=== PATIENT | male | born 1940 | race Caucasian/White ===

== ENCOUNTER 2020-01-15 15:05 | Outpatient (RCR) | payer MEDICARE, SELFPAY ==
--- NOTE | 2020-01-15 16:14 | HMH.SLDYSPHA ---
Speech & Language Evaluation Speech/Language Dysphagia Evaluation Start: 01/15/20 16:02 Freq: ONCE Status: Active Protocol: Document 01/15/20 16:02 LILIAN (Rec: 01/15/20 16:14 LILIAN [id number]) Dysphagia Assess/Goals/Plan Assessment Date of Evaluation: 01/15/20 Evaluation Type Initial Certification Assessment/Problems Dysphagia Does Patient Qualify for Service No Qualify/Failure Comment At this time, no clinical s/s of dysphagia are noted. If symptoms continue at home, a MBS is recommended. Plan Pt/Guardian verbally ack understanding Yes of dx/prognosis/goals G -code Required No Education Instructions provided HEP provided: Laryngeal elevation exercises, vocal fold adduction exercises, tongue based retraction exercises Compensatory strategies: small bites/small sips alternate between a bite and a sip chin tuck and hard swallow if he feels something is stuck General Information General Current Food Consistancy Regular,Thin Liquids Dentition Upper & Lower Dentures Oxygen Status Room Air Facial Symmetry Symmetrical Patient Orientation Person,Place Ability to Follow Directions Excellent Communication Ability No Impairment Dysphagia:Food Presentation Evaluation Food Type Mechanical Soft,Regular,Liquid ,Pudding Dysphagia Evaluation Summary Mr. Corona was given the following consistencies: thins via straw and open cup, pudding, mechanical soft, and regular. No clinical s/s of dysphagia were noted during the evaluation. He will be going to ENT on 01/22/2020. He was given HEP to target laryngeal elevation, vocal fold adduction, and tongue base retraction. He was also given compensatory strategies. At this time, speech therapy is not warranted. Should problems continue, it is recommended that Mr. Corona
== END 2020-01-15 15:10 | disposition home or self-care (01) ==
LOC: ST 15:05
PROVIDERS: PCP Physician Assistant; Visit Provider Physician Assistant
DX: R13.10 Dysphagia, unspecified (principal); R49.0 Dysphonia
CPT/HCPCS: 92610

== ENCOUNTER → 2020-01-29 08:40 | Outpatient (CLI) | payer MEDICARE, SELFPAY ==
--- NOTE | 2020-01-29 08:47 | XR_ITS ---
PROCEDURE: XR CHEST 2V CLINICAL HISTORY: dysphagia COMPARISON: CXR1 CHEST-PORTABLE from 04/07/2015 CXR CHEST(2 VIEWS-NOT PORTABLE) from 05/09/[address] [facility] [address] CHEST W/O CONTRAST from 05/27/2017 CXR CHEST(2 VIEWS-NOT PORTABLE) from 05/30/2017 FINDINGS: Prior CABG. Normal heart size. There is tortuosity/ectasia of the descending thoracic aorta . Right hemidiaphragm is slightly elevated with atelectatic changes in the right lung base. No acute bony abnormalities. IMPRESSION: No acute findings. Dictated by: Nav Madden MD 01/29/2020 10:52 Electronically signed by Nav Madden MD in [facility] 01/29/2020 10:52
--- NOTE | 2020-01-29 08:47 | FL_ITS ---
PROCEDURE: FL BARIUM SWALLOW CLINICAL INDICATION: dysphagia- neg. modified COMPARISON: No exams were available for comparison TECHNIQUE: In the upright position the patient was observed to swallow barium in both the AP and lateral view. The cervical esophagus was examined under fluoroscopy with images obtained. The patient was then placed prone in the right anterior oblique position and was observed to swallow barium with Valsalva technique . FLUOROSCOPY TIME: 48 seconds. FINDINGS: There was no evidence of aspiration. No filling defects or mucosal abnormalities. No masses or strictures. There was some tertiary contractions noted of the distal esophagus with mild dysmotility. No annular constricting lesions, polypoid filling defects, hernias, or mucosal abnormalities. IMPRESSION: Mild esophageal dysmotility otherwise negative Dictated by: Nav Madden MD 01/29/2020 13:11 Electronically signed by Nav Madden MD in [facility] 01/29/2020 13:11
== END ==
PROVIDERS: PCP Physician Assistant; Visit Provider Otolaryngology
DX: R13.10 Dysphagia, unspecified (principal)
CPT/HCPCS: 71046; 74220

== ENCOUNTER 2021-04-01 17:56 | Emergency (ER) | payer MEDICARE, SELFPAY ==
[2021-04-01] VITALS (8 sets, daily range): BP systolic 142–206; BP diastolic 58–79; PULSE 60–74; RESP 22–33; TEMP 36.6; O2SAT 94–98; BMI 27.3; BMI 29.7
--- NOTE | 2021-04-01 17:57 | CT_ITS ---
PROCEDURE INFORMATION: Exam: CT Head Without Contrast Exam date and time: 04/01/2021 5:57 PM Age: 80 years old Clinical indication: Walking, difficulty and weakness, extremity and weakness, facial; Patient HX: Stroke symptoms left sided; Additional info: Stroke alert TECHNIQUE: Imaging protocol: Computed tomography of the head without contrast. Radiation optimization: All CT scans at this facility use at least one of these dose optimization techniques: automated exposure control; mA and/or kV adjustment per patient size (includes targeted exams where dose is matched to clinical indication); or iterative reconstruction. Other technique: STROKE PROTOCOL was implemented. COMPARISON: No relevant comparison FINDINGS: Brain: There is age-related volume loss. There is periventricular white matter lucency consistent with chronic microvascular disease. There are small old white matter and basal ganglia lacunar infarcts. As seen on series 2 images 59-73, there is hyperdensity in the right paramedian dorsal mio measuring 10 x 9 by 11 mm most consistent with acute hemorrhage. This is less than 1 cc volume. Cerebral ventricles: Ventricular size is proportionate to prominence of the sulci Paranasal sinuses: Visualized sinuses are unremarkable. No fluid levels. Mastoid air cells: Visualized mastoid air cells are well aerated. Bones/joints: Unremarkable. No acute fracture. Soft tissues: Unremarkable. 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 ASSESSMENT: ASPECTS ([place] Stroke Program Early CT Score) is 10.
--- NOTE | 2021-04-01 17:57 | PC.NURSE ---
fsbs 121
--- NOTE | 2021-04-01 17:58 | PC.NURSE ---
Pt to rad
--- NOTE | 2021-04-01 18:02 | XR_ITS ---
PROCEDURE INFORMATION: Exam: XR Chest Exam date and time: 04/01/2021 6:02 PM Age: 80 years old Clinical indication: Cough TECHNIQUE: Imaging protocol: XR of the chest. Views: 1 view. COMPARISON: CR XR CHEST 2V 01/29/2020 8:56 AM FINDINGS: Lungs: Poor inspiratory volume. Area of atelectasis or consolidation at the left lung base Pleural spaces: Unremarkable. No pleural effusion. No pneumothorax. Heart/Mediastinum: Unremarkable. No cardiomegaly. Bones/joints: Status post median sternotomy IMPRESSION: Poor inspiratory volume with area of atelectasis or consolidation at left lung base
--- NOTE | 2021-04-01 18:09 | PC.NURSE ---
pt return from CT
--- NOTE | 2021-04-01 18:17 | PC.NURSE ---
AGA LOPEZ spoke with [facility]
[2021-04-01 18:20] LABS: Coronavirus 19, PCR Not Detected (NotDetected); Influenza A, PCR Not Detected (NotDetected); Influenza B, PCR Not Detected (NotDetected)
[2021-04-01 18:25] LABS: Basophils # 0.1 K/mm3 (0-0.2); Basophils % 0.7 % (0.1-2.0); Eosinophils # 0.4 K/mm3 (0.0-0.4); Eosinophils % 3.8 % (0.1-12.0); Hematocrit 45.1 % (42.0-52.0); Hemoglobin 14.9 g/dL (14.1-18.0); Lymphocytes # 4.6 K/mm3 (0.7-4.5); Lymphocytes % 44.5 % (10-50); Mean Corpuscular Hemoglobin 31.7 pg (27.0-31.2); Mean Corpuscular Volume 96.1 fl (80-94); Mean Platelet Volume 9.3 fl (7.4-10.4); Monocytes # 0.8 K/mm3 (0.1-1.0); Monocytes % 7.3 % (1.7-9.3); Neutrophils # 4.5 K/mm3 (1.8-7.8); Neutrophils % 43.7 % (37.0-80.0); Platelet Count 180 K/mm3 (142-424); Red Blood Count 4.69 M/mm3 (4.60-6.20); Red Cell Distribution Width 14.2 % (11.5-17.5); White Blood Count 10.4 K/mm3 (4.8-10.8)
[2021-04-01 18:30] LABS: Alanine Aminotransferase 15 U/L (12-78); Albumin Level 4.1 g/dl (3.5-5.0); Albumin/Globulin Ratio 1.2 (1.1-1.8); Alkaline Phosphatase 74 U/L (38-126); Anion Gap 15.1 mEq/L (5-15); Aspartate Amino Transferase 29 U/L (17-59); Bilirubin,Total 0.3 mg/dl (0.2-1.3); Blood Urea Nitrogen 27 mg/dl (9-20); Calcium 9.5 mg/dl (8.4-10.2); Carbon Dioxide 25 mmol/L (22.0-30.0); Chloride 104 mmol/L (98-107); Creatinine Clearance Estimated 55 mL/min (50-200); Estimated Glomerular Filt Rate 53 ml/min (>60); GFR (African American) 64 ML/MIN (>60); Globulin 3.4 g/dL (1.3-3.2); Glucose 131 mg/dl (74-100); Lipase 170 U/L (23-300); Potassium 4.1 mmoL/L (3.5-5.1); Sodium 140 mmol/L (136-145); Total Protein,Serum 7.5 g/dl (6.3-8.2)
--- NOTE | 2021-04-01 18:30 | PC.NURSE ---
pt place on O2 at 2L per NC
[2021-04-01 18:32] LABS: Activated Partial Thrombo Time 23.7 seconds (22.8-30.6); Prothrombin Time 10.8 seconds (10.1-12.5)
--- NOTE | 2021-04-01 18:32 | PC.NURSE ---
Calling [facility] at this time.
[2021-04-01 18:37] LABS: INR 0.91 (0.9-1.1)
[2021-04-01 18:44] LABS: NT Pro Brain Natriuretic Pep. 444 pg/mL (0-450); Troponin I < 0.01 ng/ml (0.00-0.034)
--- NOTE | 2021-04-01 18:46 | HMH.EDWEAK ---
ED Disposition Clinical Impression: Pontine hemorrhage Disposition: Xfer Critical Access Hosp Condition on Discharge: Critical Referrals: Delfina Ladd PA [Primary Care Provider] - - Critical Care Critical Care Time: Yes Attestation: On 04/01/21, the high probability of a clinically significant, sudden or life threatening deterioration of the following system(s) required my full and direct attention, intervention and personal management. The time I documented below is in addition to time spent performing reported procedures but includes the following listed in this critical care notation. Total Critical Care Time: 30 Vital system(s) involved:: Central Nervous System My critical care processes included: Assessment & monitoring of V/S, Initial and Re-exams, Data Review/Interpretation, Coordinating Care, Medication Orders and management, Documentation Medical Decision Making - Medical Records Medical records reviewed: Yes: I reviewed the patient's medical records. - Jonathan Inquiry Pt receiving controlled substance: No Vital Signs: 04/01/21 17:57 04/01/21 18:12 04/01/21 18:17 Temperature 97.9 F Temperature Source Oral Pulse Rate 60 61 Pulse Rate [Left Radial] 60 Respiratory Rate 22 28 H 24 Blood Pressure 189/69 H 179/67 H Blood Pressure [Right Arm] 206/79 H Blood Pressure Mean 84 Blood Pressure Mean [Right Arm] 121 Blood Pressure Source [Right Arm] Automatic Cuff Blood Pressure Position [Right Arm] Sitting 02 Sat by Pulse Oximetry 94 L 94 L 95 Oxygen Delivery Method Room Air 04/01/21 18:28 04/01/21 18:33 Temperature Temperature Source Pulse Rate 60 60 Pulse Rate [Left Radial] Respiratory Rate 30 H 33 H Blood Pressure 167/65 H 161/64 H Blood Pressure [Right Arm] Blood Pressure Mean Blood Pressure Mean [Right Arm] Blood Pressure Source [Right Arm] Blood Pressure Position [Right Arm] 02 Sat by Pulse Oximetry 96 97 Oxygen Delivery Method - Lab Data Lab Results 04/01/21 18:10: WBC 10.4, RBC 4.69, Hgb 14.9, Hct 45.1, MCV 96.1 H, MCH 31.7 H, MCHC 33.0, RDW 14.2, Plt Count 180, MPV 9.3, Neut % (Auto) 43.7, Lymph % (Auto) 44.5, Cooper % (Auto) 7.3, Eos % (Auto) 3.8, Baso % (Auto) 0.7, Neut # (Auto) 4.5, Lymph # (Auto) 4.6 H, Cooper # (Auto) 0.8, Eos # (Auto) 0.4, Baso # (Auto) 0.1 04/01/21 18:10: PT 10.8, INR 0.91, APTT 23.7 04/01/21 18:10: Sodium 140, Potassium 4.1, Chloride 104, Carbon Dioxide 25, Anion Gap 15.1 H, BUN 27 H, Creatinine 1.30 H, Estimated Creat Clear 55, Estimated GFR 53 L, Est GFR ( Amer) 64, Glucose 131 H, Calcium 9.5, Total Bilirubin 0.3, AST 29, ALT 15, Alkaline Phosphatase 74, Troponin I < 0.01, NT-Pro-B Natriuret Pep 444, Total Protein 7.5, Albumin 4.1, Globulin 3.4 H, Albumin/Globulin Ratio 1.2, Lipase 170 Result diagrams: 04/01/21 18:10 04/01/21 18:10 Orders (Tests/Meds): ED MEDICATIONS Generic Name Dose Route Start Last Admin Trade Name Freq PRN Reason Stop Dose Admin Nicardipine HCl 25 mg/ Sodium 250 mls @ 50 mls/hr 04/01/21 18:35 04/01/21 18:35 Chloride IV 05/01/21 18:34 50 mls/hr .Q5H MASHA Administration Protocol Discontinued Medications Generic Name Dose Route Start Last Admin Trade Name Freq PRN Reason Stop Dose Admin Hydralazine HCl 10 mg 04/01/21 18:34 04/01/21 18:14 Hydralazine 20mg/Ml Vial IV 04/01/21 18:35 10 mg ONCE ONE Administration Ondansetron HCl 4 mg 04/01/21 18:34 04/01/21 18:12 Ondansetron 4mg/2ml Vial IV 04/01/21 18:35 4 mg ONCE ONE Administration ORDERS Category Date Time Status Brain Natriuretic Peptide Stat Lab 04/01/21 18:10 Results Comprehensive Metabolic Panel Stat Lab 04/01/21 18:10 Results Lactic Acid Stat Lab 04/01/21 18:27 Received Lipase Stat Lab 04/01/21 18:10 Results Rapid PCR Covid and Flu A/B Stat Lab 04/01/21 18:16 Received TSH [Thyroid Stimulating Hormone] Stat Lab 04/01/21 18:10 Results Trop I [Troponin I] Stat Lab 04/01
--- NOTE | 2021-04-01 18:49 | PC.NURSE ---
waiting regional operations manager back from [employer] [place] 2 declined for weather they are checking with [employer]
--- NOTE | 2021-04-01 18:52 | PC.NURSE ---
[employer] states all [employer] declined
[2021-04-01 18:53] LABS: Lactic Acid 1.5 mmol/L (0.7-2.1)
--- NOTE | 2021-04-01 19:01 | PC.NURSE ---
[facility] declined due to weather
[2021-04-01 19:02] LABS: Thyroid Stimulating Hormone 2.98 uIU/mL (0.465-4.68)
--- NOTE | 2021-04-01 19:04 | PC.NURSE ---
Report called to Bobo at [facility]
--- NOTE | 2021-04-01 19:10 | PC.NURSE ---
pt transfered to [facility]
== END 2021-04-01 19:20 | disposition critical access hospital (66) ==
PROVIDERS: Emergency Provider Emergency Medicine; PCP Physician Assistant
DX: I62.9 Nontraumatic intracranial hemorrhage, unspecified (principal); R53.1 Weakness; R29.712 NIHSS score 12; I25.10 Atherosclerotic heart disease of native coronary artery without angina pectoris; I50.9 Heart failure, unspecified; Z20.822 Contact with and (suspected) exposure to COVID-19
CPT/HCPCS: 70450; 71045; 80053; 83605; 83690; 83880; 84443; 84484; 85025; 85610; 85730; 96365; 96375; 99284; C9803; J2405; U0003; U0005

== ENCOUNTER → 2021-05-04 18:40 | Outpatient (CLI) | payer MEDICARE, SELFPAY | PROVIDERS: Visit Provider Physician Assistant | DX: R82.90 Unspecified abnormal findings in urine (principal); B96.20 Unspecified Escherichia coli [E. coli] as the cause of diseases classified elsewhere | CPT/HCPCS: 87086; 87088; 87186 ==

== ENCOUNTER → 2021-05-29 13:34 | Outpatient (CLI) | payer MEDICARE, SELFPAY | PROVIDERS: Visit Provider Emergency Medicine | DX: N39.0 Urinary tract infection, site not specified (principal); B96.20 Unspecified Escherichia coli [E. coli] as the cause of diseases classified elsewhere | CPT/HCPCS: 87086; 87186 ==

== ENCOUNTER → 2022-01-25 12:32 | Outpatient (CLI) | payer MEDICARE, SELFPAY ==
--- NOTE | 2022-01-25 12:35 | FL_ITS ---
FINAL REPORT CLINICAL HISTORY: dysphagia, 2:37 fluoro time FINDINGS: MODIFIED BARIUM SWALLOW History: Dysphagia. FINDINGS: Fluoroscopy was provided for the speech pathologist to evaluate the swallowing mechanism. The patient was given several different consistencies of barium while the swallow was visualized fluoroscopically. The report of the speech pathologist should be consulted prior to making dietary decisions. FLUOROSCOPY TIME: 2 minutes 43 seconds. 12 cine runs were obtained. IMPRESSION: Modified barium swallow under fluoroscopic guidance. Please see the report of the speech pathologist for more detail. Films reviewed , interpreted and dictated by Dr. Reed. Transcribed by Phil Garcia PA-C. Reviewed, Interpreted and Dictated by Ajay Reed III, MD Transcribed by DELFINA Kumar Authenticated and [facility]
--- NOTE | 2022-01-25 14:01 | HMH.SLMBS2 ---
Speech & Language Evaluation Speech/Language Mod Barium Swallow Start: 01/25/22 13:28 Freq: once Status: Complete Protocol: Document 01/25/22 13:28 YESENIA (Rec: 01/25/22 14:00 JAMAICASOCRISTIAN [id number]) General Information General Current Food Consistancy Regular,Thin Liquids Dentition Poor Dentition Oxygen Status Room Air Facial Symmetry Symmetrical Ability to Follow Directions Fair Communication Ability Severe Impairment MBS Recommendations Diet Dietary Recommendations Regular,Honey Liquids Treatment/Strategies Strategy/Precaution Recommend Sitting Upright (90 deg),Small Bites and Sips,Alternate Liquids/Solids Mod Barium Swallow Impressions Summary and Impressions Oral Phase Impression Mild Impairment Oral Phase Summary Pt demonstrated adequate manipulation of all solid bolus, however, demonstrated withholding during presentation of thin and nectar thick liquids. Pt also required multiple swallows and a liquid wash to clear solid boluses presented (mech. soft and regular solid.) Pharyngeal Phase Impression Moderate Impairment Pharyngeal Phase Summary Pt presented with delayed cough during thin liquid trial , trace residue in the vallecuae and pyriform sinuses during nectar thick following delayed swallow. He also demonstrated multiple swallows across these consistencies. When presented with a barium pill, it required 3 swallows with a honey thick liquid to transfer bolus and then became lodged in pyriform sinus which then required mod-max cues to take another sip and swallow hard to clear pill bolus. Speech/Language MBS Assessment/Goals/Plan Assessment Date of Evaluation: 01/25/22 Evaluation Type Initial Certification Assessment/Problems Pt was seen following reported difficulty after stroke in March 2021, is primary caregiver and discussed that Pt has
== END ==
PROVIDERS: PCP Physician Assistant; Visit Provider Physician Assistant
DX: R13.10 Dysphagia, unspecified (principal)
CPT/HCPCS: 70371; 92611

== ENCOUNTER → 2022-01-29 10:54 | Outpatient (CLI) | payer MEDICARE, SELFPAY ==
--- NOTE | 2022-01-29 10:58 | XR_ITS ---
FINAL REPORT CLINICAL HISTORY: Cough COMPARISON: 04/01/2021 FINDINGS: Two views of the chest were obtained. There are postoperative changes from median sternotomy. The heart size and pulmonary vascularity are within normal limits. The mediastinum is normal. There is bibasilar atelectasis or pneumonia. There is no pneumothorax. There is moderate degenerative change of the thoracic spine. IMPRESSION: Bibasilar atelectasis or pneumonia. Reviewed, Interpreted and Dictated by Ajay Reed III, MD Transcribed by Cindy Tijerina Authenticated and [facility]
== END ==
PROVIDERS: PCP Physician Assistant; Visit Provider Physician Assistant
DX: R05.9 Cough, unspecified (principal)
CPT/HCPCS: 71046

== ENCOUNTER → 2022-02-01 16:01 | Outpatient (CLI) | payer MEDICARE, SELFPAY ==
--- NOTE | 2022-02-01 16:04 | XR_ITS ---
PROCEDURE INFORMATION: Exam: XR Right Hip Exam date and time: 02/01/2022 4:05 PM Age: 81 years old Clinical indication: Injury or trauma; Fall; Blunt trauma (contusions or hematomas); Patient HX: Patient fell recently with right hip pain. Patient appears to recently have had a barium study. TECHNIQUE: Imaging protocol: Radiologic exam of the Right hip. Views: 2 or 3 views hip with pelvis when performed. COMPARISON: No relevant prior studies available. FINDINGS: Bones/joints: No acute fracture or dislocation. Severe right hip joint space narrowing and associated femoral head osteophytes. Subchondral cystic changes noted at the right acetabulum. Mild to moderate left hip joint space narrowing. Soft tissues: Unremarkable. Gastrointestinal tract: Barium seen within the distal colon and rectum. Multiple diverticuli. IMPRESSION: Severe right-sided and [id number] left-sided hip degenerative change.
--- NOTE | 2022-02-01 16:04 | XR_ITS ---
PROCEDURE INFORMATION: Exam: XR Lumbosacral Spine Exam date and time: 02/01/2022 4:05 PM Age: 81 years old Clinical indication: Injury or trauma; Fall; Blunt trauma (contusions or hematomas); Patient HX: Patient fell recently with low back and right hip pain. Patient appears to recently have had a barium study. TECHNIQUE: Imaging protocol: Radiologic exam of the lumbosacral spine. Views: 4 or 5 views. COMPARISON: No relevant prior studies available. FINDINGS: Bones/joints: Severe compression of the L4 vertebral body. No spondylolysis or spondylolisthesis. Moderate facet arthrosis at L3-L4, L4-L5 and L5-S1. Disc spaces are preserved. Multilevel flowing osteophytes. SI joints are obscured. Soft tissues: Unremarkable. Vascular: Aortic endograft in place. Gastrointestinal tract: Residual barium/contrast within the distal colon and rectum with multiple diverticuli visualized. IMPRESSION: 1. Severe L4 vertebral body compression deformity of uncertain age. 2. Degenerative changes.
== END ==
PROVIDERS: PCP Physician Assistant; Visit Provider Emergency Medicine
DX: W19.XXXA Unspecified fall, initial encounter (principal); M54.50 Low back pain, unspecified; M25.552 Pain in left hip
CPT/HCPCS: 72110; 73502

== ENCOUNTER → 2022-02-15 12:59 | Outpatient (CLI) | payer MEDICARE, SELFPAY | PROVIDERS: PCP Physician Assistant; Visit Provider Physician Assistant | DX: S32.040D Wedge compression fracture of fourth lumbar vertebra, subsequent encounter for fracture with routine healing (principal) ==

== ENCOUNTER → 2022-02-23 08:46 | Outpatient (CLI) | payer MEDICARE, SELFPAY ==
--- NOTE | 2022-02-23 08:47 | MR_ITS ---
FINAL REPORT CLINICAL HISTORY: Compression fracture L4. PATIENT FELL 1 MONTH AGO. LOW BACK PAIN SINCE. BILATERAL LEG PAIN AND NUMBNESS. FINDINGS: Multiplanar MR imaging of the lumbar spine was performed without contrast. On the sagittal T2-weighted images, disc degeneration is seen at multiple levels. The vertebral alignment is normal. There is a severe chronic L4 compression fracture with 90% loss of central height. There is also a moderate, acute to subacute L5 compression fracture with 40-50% loss of central height. There is increased signal in the L3-4 disc of uncertain etiology. The conus has an unremarkable appearance. T12-L1: There is no significant canal stenosis or neural foraminal narrowing. L1-2: Annular bulge is present. There is no significant canal stenosis or neural foraminal narrowing. L2-3: An annular bulge is present. Facet arthropathy and osteophytes are present. There is mild bilateral neural foraminal narrowing. L3-4: An annular bulge is present. Facet arthropathy and osteophytes are present. There is a posterolateral annular tear and small central disc protrusion. There is mild right and moderate left neural foraminal narrowing. There is mild central canal stenosis with an AP diameter of the thecal sac of 8 mm. L4-5: An annular bulge and facet arthropathy are present. There is moderate right and severe left neural foraminal narrowing. There is mild central canal stenosis with an AP diameter of the thecal sac of 7 mm. L5-S1: An annular bulge and facet arthropathy are present. There is moderate bilateral neural foraminal narrowing. Note is made of spurring of the sacroiliac joints. IMPRESSION: Moderate, acute to subacute L5 compression fracture. Severe chronic L4 compression fracture. Multilevel degenerative disc disease and spondylosis with mild central canal stenosis at L3-4 and L4-5. Small central disc protrusion at L3-4. Reviewed, Interpreted and Dictated by Ajay Reed III, MD Transcribed by Leyla Munroe Authenticated and [facility]
== END ==
PROVIDERS: PCP Physician Assistant; Visit Provider Physician Assistant
DX: S32.040A Wedge compression fracture of fourth lumbar vertebra, initial encounter for closed fracture (principal); M54.50 Low back pain, unspecified
CPT/HCPCS: 72148; 76376

== ENCOUNTER → 2022-02-25 13:53 | Outpatient (POV) | payer MEDICARE, SELFPAY ==
[2022-02-25 14:04] VITALS: BP 124/77; PULSE 96; RESP 20; O2SAT 100; BMI 29.0
--- NOTE | 2022-02-25 14:27 | HMH.PMCON ---
Assessment and Plan (1) Compression fracture Status: Acute Category: Medical (2) Low back pain Status: Acute Category: Medical Code(s): M54.50 - Low back pain, unspecified (3) Degenerative disc disease, lumbar Status: Acute Category: Medical Code(s): M51.36 - Other intervertebral disc degeneration, lumbar region (4) Spinal stenosis Status: Acute Category: Medical Code(s): M48.00 - Spinal stenosis, site unspecified - Assessment and plan all Dx Assessment and Plan for all problems:: Will start patient on lidocaine patch 5% to help with his LBP 2/2 compression fx. Upon reviewing his MRI, Dr. Laureano and I have decided to refer the patient to Neurosurgery for further eval and tx. Will refer patient to Dr. Whitney. I discussed with the patient and his that if they decide to not move forward with any surgical intervention, we can possibly look into intrathecal pain pump later on. Will see the patient back after they see Nsx. Patient has been instructed to contact the clinic with any concerns before the next appointment. Dr. Laureano has reviewed this note and agrees with this plan of care. This note was dictated using voice recognition software and make contain errors or omissions. HPI - Data of Consult Patient: new to practice Consult date: 02/25/22 Requesting Physician: DELFINA Rosenbaum Primary Care Provider: DELFINA Lim - Consult Narrative Reason for consult: LBP 2/2 compression fx History of present illness: Mr. Corona is a 81 year old male who presents today as a new pt. Patient is referred by Delfina Ladd PA-C. Thank you for the referral. Patient presents today with worsening LBP that is non-radiating to BLE. 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 His is in the room to help with hx. Patient's says that the pt fell about 1 month ago. They ordered an x-ray which shows compression fractures and had to get a lumbar MRI. The says that patient already has issues with his mobility due to his CVA last year. She does notice that his mobility is lesser now since the fall. Denies any loss of bowel and bladder functions. Says that his pain is about the same since the fall. Rates pain 5/10. He takes tylenol for pain which is significantly helping. He is not on any scheduled medications. [facility] [phone]. CC: DELFINA Rosenbaum [facility] History I have reviewed the patient's past medical history: Yes Medical History: Reports:: Congestive Heart Failure, Coronary Artery Disease, Cerebrovascular Accident, Hypertension, Transient Ischemic Attacks (TIA), Urinary Tract Infection Denies:: Cancer, Diabetes Mellitus Type 1, Diabetes Mellitus Type 2, MRSA *Have you ever received a pneumonia vaccine?: No *Have you received a flu vaccine this season?: No Other Medical History: Reports: Arthritis, Other Laterality Cases: Left: Arthroscopy Knee Other Surgeries: Yes: CABG, Cardiac Surgery, Coronary Stent Amputation: No Fractures: No - *Social History Smoking Status: Never smoker Alcohol Intake: never Substance Use Type: denies use *Occupational Status:: other Housing: house Household Members: spouse *Travel in the last 8 weeks: None Family Hx:: Other Review of Systems - Review of Systems Review of Systems: General: No recent weight changes, no fever, no sleep disturbances Respiratory: No cough, no shortness of air, no recurring pulmonary infections Cardiovascular/peripheral vascular: No chest pain, no palpitations, no edema, no shortness of breath Gastrointestinal: No new onset incontinence, normal bowel movements reported Genitourinary: No new onset incontinence Musculoskeletal: Low back pain Psychiatric: Normal mood Neurological: Non-verbal, denies any confusion, +weakness BLE Meds Home Medications Medication Instructions Recorded Confirmed Type multivitamin with minerals 1 tab PO DAILY 05/04/21 02/25/22 History Amlodipine Besylate 5 mg PO DAILY 02/25/22 02/25/22 History Ascorbic
== END ==
PROVIDERS: PCP Physician Assistant; Visit Provider Student in an Organized Health Care Education/Training Program
DX: M51.36 Other intervertebral disc degeneration, lumbar region (principal); M48.061 Spinal stenosis, lumbar region without neurogenic claudication
CPT/HCPCS: 99202; G0463

== ENCOUNTER → 2022-04-26 11:29 | Outpatient (CLI) | payer MEDICARE, SELFPAY ==
--- NOTE | 2022-04-26 11:34 | XR_ITS ---
FINAL REPORT TECHNIQUE: Chest PA & Lateral CLINICAL HISTORY: cough, SOB FINDINGS: 2 views of the chest were performed. There is evidence of median sternotomy. The heart size is normal. The mediastinum is within normal limits. There is mild bibasilar opacity. There are no pleural effusions. There is no pneumothorax. The bony thorax appears intact. IMPRESSION: Mild bibasilar opacity favors atelectasis or scarring. Reviewed, Interpreted and Dictated by Ajay Reed III, MD Transcribed by Reji Gee Authenticated and [facility]
== END ==
PROVIDERS: PCP Physician Assistant; Visit Provider Student in an Organized Health Care Education/Training Program
DX: R05.9 Cough, unspecified (principal)
CPT/HCPCS: 71046

== ENCOUNTER 2022-04-26 12:57 | Outpatient (RCR) | payer MEDICARE, SELFPAY | END 2022-04-26 12:59 | disposition home or self-care (01) | LOC: ST 12:57 | PROVIDERS: PCP Physician Assistant; Visit Provider Student in an Organized Health Care Education/Training Program | DX: R13.10 Dysphagia, unspecified (principal) | CPT/HCPCS: 92610 ==

== ENCOUNTER → 2023-03-10 16:52 | Outpatient (CLI) | payer MEDICARE, SELFPAY | PROVIDERS: PCP Nurse Practitioner Family; Visit Provider Nurse Practitioner Family | DX: N39.0 Urinary tract infection, site not specified (principal) | CPT/HCPCS: 87086 ==

== ENCOUNTER → 2023-03-24 10:51 | Outpatient (CLI) | payer MEDICARE, SELFPAY ==
--- NOTE | 2023-03-24 10:53 | US_ITS ---
FINAL REPORT CLINICAL HISTORY: discoloration of bilateral lower legs, previous smoker, HTN, hx CVA, CAD, discoloration of medial left foot. FINDINGS: COMPLETE ANKLE/BRACHIAL INDICES BILATERAL Ankle-brachial indices were obtained. The right ENEDELIA is 0.58. Left ENEDELIA is 0.48. IMPRESSION: Moderate vascular disease bilaterally. Reviewed, Interpreted and Dictated by Ajay Reed III, MD Transcribed by Leyla Munroe Authenticated and [facility]
== END ==
PROVIDERS: PCP Nurse Practitioner Family; Visit Provider Nurse Practitioner Family
DX: R09.89 Other specified symptoms and signs involving the circulatory and respiratory systems
CPT/HCPCS: 93923

== ENCOUNTER → 2023-03-31 14:24 | Outpatient (CLI) | payer MEDICARE, SELFPAY ==
[2023-03-31 15:00] LABS: Basophils % 0.3 % (0.1-2.0); Eosinophils # 0.1 K/mm3 (0.0-0.4); Hematocrit 43.5 % (42.0-52.0); Hemoglobin 14.1 g/dL (14.1-18.0); Lymphocytes # 1.8 K/mm3 (0.7-4.5); Lymphocytes % 21.9 % (10-50); Mean Corpuscular HGB Conc 32.4 g/dL (31.8-35.4); Mean Corpuscular Volume 92.9 fl (80-94); Mean Platelet Volume 8.7 fl (7.4-10.4); Monocytes # 0.8 K/mm3 (0.1-1.0); Monocytes % 9.5 % (1.7-9.3); Neutrophils # 5.5 K/mm3 (1.8-7.8); Neutrophils % 67.3 % (37.0-80.0); Platelet Count 194 K/mm3 (142-424); Red Blood Count 4.69 M/mm3 (4.60-6.20); Red Cell Distribution Width 14.8 % (11.5-17.5); White Blood Count 8.2 K/mm3 (4.8-10.8)
[2023-03-31 15:36] LABS: Alanine Aminotransferase 17 U/L (12-78); Albumin Level 4.1 g/dl (3.5-5.0); Alkaline Phosphatase 77 U/L (38-126); Anion Gap 15.4 mEq/L (5-15); Aspartate Amino Transferase 24 U/L (17-59); Bilirubin,Direct 0.2 mg/dl (0.0-0.4); Bilirubin,Indirect 0.3 mg/dL (0.0-0.9); Bilirubin,Total 0.5 mg/dl (0.2-1.3); Bilirubin,Unconjugated 0.3 mg/dL (0.0-1.1); Blood Urea Nitrogen 27 mg/dl (9-20); Calcium 9.2 mg/dl (8.4-10.2); Carbon Dioxide 27 mmol/L (22.0-30.0); Chloride 104 mmol/L (98-107); Chol/HDL Ratio 7.1 (1-3.5); Cholesterol 220 mg/dl (140-200); Estimated Glomerular Filt Rate 53 ml/min (>60); GFR (African American) 64 ML/MIN (>60); Glucose 110 mg/dl (74-100); HDL Cholesterol 31 mg/dl (40-60); Potassium 4.4 mmoL/L (3.5-5.1); Sodium 142 mmol/L (136-145); Total Protein,Serum 7.4 g/dl (6.3-8.2); Triglycerides 116 mg/dl (30-150); VLDL Cholesterol 23 mg/dL (0-40)
[2023-03-31 15:47] LABS: Direct LDL Cholesterol 146.64 mg/dL (100-129)
[2023-03-31 15:53] LABS: Free T4 (Free Thyroxine) 1.34 ng/dl (0.78-2.19)
[2023-03-31 16:07] LABS: Thyroid Stimulating Hormone 1.89 uIU/mL (0.465-4.68)
== END ==
PROVIDERS: PCP Physician Assistant; Visit Provider Nurse Practitioner
DX: I63.9 Cerebral infarction, unspecified (principal); L81.9 Disorder of pigmentation, unspecified; Z95.1 Presence of aortocoronary bypass graft; Z98.890 Other specified postprocedural states; R07.9 Chest pain, unspecified; L60.8 Other nail disorders; Z79.899 Other long term (current) drug therapy
CPT/HCPCS: 36415; 80048; 80061; 80076; 83735; 84439; 84443; 85025

== ENCOUNTER → 2023-04-05 11:44 | Outpatient (CLI) | payer MEDICARE, SELFPAY ==
--- NOTE | 2023-04-05 11:44 | NM_ITS ---
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 With Lexiscan, patient denied any complaint of chest pain. Cardiac Stress and Resting SPECT Images: Cardiac Stress and Resting SPECT images were obtained using technetium 99m Myoview 30.9 mCi stress and 10.43 mCi at rest. The patient could not lie on his abdomen. Therefore, prone stress imaging could not be performed. This may affect the diagnostic interpretation of the study findings. Resting and stress imaging in supine position demonstrate a medium sized, moderate, fixed perfusion defect in the basal to mid inferior LV wall. Gated imaging demonstrates low normal global LV systolic function. There is mild hypokinesis of the inferior LV wall. LVEF is calculated at 50%. Conclusion: The patient could not lie on his abdomen. Therefore, prone stress imaging could not be performed. This may affect the diagnostic interpretation of the study findings. Medium sized, moderate, fixed perfusion defect in the basal to mid inferior LV wall. There is no evidence of reversible ischemia. Gated imaging demonstrates low normal global LV systolic function. There is mild hypokinesis of the inferior LV wall. LVEF is calculated at 50%. Electronically signed by : Cynthia Chacon MD 04/09/2023 23:43:01
--- NOTE | 2023-04-05 14:54 | CA_ITS ---
APPROVED REPORT Exam: Pharmacologic Technologist: Kristyn Burroughs Ht: 5 ft 6 in Wt: 179 lbs BSA: 1.91 m2 HR: 82 bpm BP: 165/72 mmHg Rhythm: NSR Indications: Shortness of Air Medical History Medications: Amlodipine,,,,, Vitamin C,,,,, Hyoscyamine,,,,, Pantoprazole,,,,, Duoneb,,,,, TAMSULOSIN,,,,, Vitamin D,,,,, Finasteride,,,,, Multivitamin,,,,, Lidocaine patch,,,,, Zinc SULFATE,,,,, GlYcopyrolate,,,,, Stress Test Details Test: LEXISCAN HR Resting HR: 87 bpm Max Heart Rate (APMHR): 138 bpm Max HR Achieved: 106 bpm Target HR (85% APMHR): 117 bpm % of APMHR: 77 Recovery HR: 101 bpm BP Resting BP: 165.0/72.0 mmHg Max BP: 165.0/72.0 mmHg Recovery BP: 161.0/68.0 mmHg ECG Resting ECG: Sinus Rhythm, cannot rule out old septal NV Stress ECG: No significant ST changes Arrhythmia: PVCs Clinical Exercise duration: 04:05 min Highest Stage Achieved: Exercise capacity: 1.0 METs Stress ECG Conclusion Symptoms: Chest pain/pressure Arrhythmias/Ectopy: PVC's ST-T Changes: No significant ST changes Conclusion: Unremarkable Lexiscan stress test. Myoview images are reported separately. Test Summary REST . . . . . . . Resting REST 06:44 . . 87 . 165/ 72 . . Stage 1 . . . . . . . Myoview Injected Stage 1 01:00 . . 98 . . . . Stage 2 01:00 . . 101 . . . . Stage 3 01:00 . . 98 . 146/ 63 . . Stage 4 01:00 . . 99 . 122/ 68 . . Stage 4 01:05 . . 99 . 122/ 68 . Stop exercise at 04:05 RECOVERY 01:00 . . 97 . . . . RECOVERY 02:00 . . 101 . . . . RECOVERY 03:00 . . 103 . . . . RECOVERY 04:00 . . 101 . 161/ 67 . . RECOVERY 05:00 . . 101 . 161/ 67 . . RECOVERY 05:52 . . 102 . 161/ 68 . . Electronically signed by : Cynthia Chacon MD 04/09/2023 23:40:49
== END ==
PROVIDERS: PCP Physician Assistant; Visit Provider Nurse Practitioner
DX: I63.9 Cerebral infarction, unspecified (principal); L81.9 Disorder of pigmentation, unspecified; Z95.1 Presence of aortocoronary bypass graft; Z98.890 Other specified postprocedural states; R06.02 Shortness of breath
CPT/HCPCS: 78452; 93017; A9502; J2785

== ENCOUNTER → 2023-04-25 13:00 | Outpatient (CLI) | payer MEDICARE, SELFPAY ==
--- NOTE | 2023-04-25 13:07 | CA_ITS ---
APPROVED REPORT EXAM: Comprehensive 2D, Doppler, and color-flow Echocardiogram Oceanography Teacher: Alejandra Cruz RT(R) Ht: 5 ft 6 in Wt: 179lbs BSA: 1.91 BP: 110/70 mmHg Indications: AAA, CVA, SOA, CAD, CP 2D Dimensions LVOT 2.20 cm (M/F) 1.5-2.5 LVEF (Corona's) 51.60 % M: 52 - 72 LV Volume 115.40 mL M: 62 - 150 LV Volume Index 60.42 mL/m2 M: 34 - 74 LA Volume 48.70 mL LA Volume Index 25.50 mL/m2 (M/F) 16-34 M-Mode Dimensions RVDd 2.96 cm (0.9-2.6) LA Diam 5.07 cm (1.9-4.0) LVDd 5.42 cm (3.5-5.7) Ao Diam 3.01 cm (2.0-3.7) LVDs 4.02 cm (3.5-5.7) IVSd 0.76 cm (0.6-1.1) PWd 0.53 cm (0.6-1.1) EF (Teich) 50.30% FS 25.80% EDV (Teich) 142.50 mL ESV (Teich) 70.80 mL LV Diastology E Decel Time 207.00 (160-240 msec) E/A Ratio 0.76 MED E' 5.70 (< 7 cm/sec) E'/MED E' Ratio 12.11 (>14) LAT E' 7.40 (<10 cm/sec) E/LAT E' Ratio 9.32 (>14) Aortic Valve LVOT Max 108.00 (70-110 cm/s) LVOT VTI 24.73 cm AoV Peak Jermaine. 121.00 (50-130 cm/s) AI PHT 400.00 ms AO Peak GR. 5.90 mmHg AO Mean GR. 2.90 (<5 mmHg) AO VTI 25.40 (18-25 cm) BRYANT (VTI) 3.70 (2.5-4.5 cm2) Mitral Valve MV A Velocity 91.00 (40-130 cm/s) E/A Ratio 0.76 MV Decel. Time 207.00 (160-240 ms) Left Ventricle The left ventricle is normal size. The left ventricular systolic function is normal. The left ventricular ejection fraction is within the normal range. There is normal left ventricular wall thickness. There is mild hypokinesis of the septal, inferoseptal, and anteroseptal LV krishnamurthy. Diastolic function is indeterminate. LVEF is 55%. Right Ventricle The right ventricle is normal size. The right ventricular systolic function is normal. Atria Left atrium is mildly dilated. The right atrium size is normal. Aortic Valve The aortic valve is moderately thickened. The leaflets appear to have partially restricted motion. No evidence of aortic stenosis. BRYANT by 2D planimetry is 2.2 cm???. Peak velocity is 1.3 m/s. Mean AV gradient is 4 mmHg, max AV gradient is 8 mmHg. DVI=0.78. SVi=44 ml/m2. Mild to moderate aortic regurgitation. Mitral Valve Mild mitral annular calcification. The mitral valve leaflets are mildly thickened. No evidence of mitral valve stenosis. Mild mitral regurgitation. Tricuspid Valve The tricuspid valve leaflets are thin and pliable. Trace tricuspid regurgitation. There is insufficient TR jet to estimate RVSP. Pulmonic Valve The pulmonary valve is grossly normal in structure. Trace pulmonic regurgitation. Great Vessels The aortic root is normal in size. The ascending aorta is normal in size. IVC is normal in size and collapses >50% with inspiration. Pericardium There is no pericardial effusion. Other Information Study Quality: Fair Conclusion Normal biventricular systolic function. Mild hypokinesis of the septal, inferoseptal, and anteroseptal LV krishnamurthy. Mild LA dilatation. Moderately thickened aortic valve leaflets. Mild to moderate AI. Aortic sclerosis, but no aortic stenosis. Mild MR. Electronically signed by : Cynthia Chacon MD 04/26/2023 20:43:06
== END ==
PROVIDERS: PCP Physician Assistant; Visit Provider Nurse Practitioner
DX: R07.9 Chest pain, unspecified (principal); L81.9 Disorder of pigmentation, unspecified; Z95.1 Presence of aortocoronary bypass graft; Z98.890 Other specified postprocedural states; Z86.73 Personal history of transient ischemic attack (TIA), and cerebral infarction without residual deficits
CPT/HCPCS: 93306

== ENCOUNTER → 2023-07-01 08:44 | Outpatient (CLI) | payer MEDICARE, SELFPAY ==
[2023-07-01 09:28] LABS: Basophils % 0.5 % (0.1-2.0); Eosinophils # 0.2 K/mm3 (0.0-0.4); Eosinophils % 2.8 % (0.1-12.0); Hematocrit 42.7 % (42.0-52.0); Hemoglobin 13.9 g/dL (14.1-18.0); Lymphocytes # 1.8 K/mm3 (0.7-4.5); Lymphocytes % 29.8 % (10-50); Mean Corpuscular HGB Conc 32.5 g/dL (31.8-35.4); Mean Corpuscular Hemoglobin 30.9 pg (27.0-31.2); Mean Corpuscular Volume 95.1 fl (80-94); Mean Platelet Volume 8.5 fl (7.4-10.4); Monocytes # 0.5 K/mm3 (0.1-1.0); Monocytes % 8.7 % (1.7-9.3); Neutrophils # 3.5 K/mm3 (1.8-7.8); Neutrophils % 58.2 % (37.0-80.0); Platelet Count 147 K/mm3 (142-424); Red Blood Count 4.49 M/mm3 (4.60-6.20); Red Cell Distribution Width 15.1 % (11.5-17.5); White Blood Count 6.1 K/mm3 (4.8-10.8)
[2023-07-01 10:12] LABS: INR 1.01 (0.9-1.1); Prothrombin Time 10.9 seconds (10.1-12.5)
[2023-07-01 10:53] LABS: Chloride 105 mmol/L (98-107); Potassium 3.9 mmoL/L (3.5-5.1); Sodium 141 mmol/L (136-145)
[2023-07-01 10:55] LABS: Blood Urea Nitrogen 19 mg/dl (9-20); Estimated Glomerular Filt Rate 49 ml/min (>60); GFR (African American) 59 ML/MIN (>60)
[2023-07-01 10:56] LABS: Anion Gap 13.9 mEq/L (5-15); Calcium 8.8 mg/dl (8.4-10.2); Carbon Dioxide 26 mmol/L (22.0-30.0); Glucose 103 mg/dl (74-100)
== END ==
PROVIDERS: PCP Physician Assistant; Visit Provider Surgery
DX: I70.229 Atherosclerosis of native arteries of extremities with rest pain, unspecified extremity (principal); I71.20 Thoracic aortic aneurysm, without rupture, unspecified; I71.43 Infrarenal abdominal aortic aneurysm, without rupture; Z86.73 Personal history of transient ischemic attack (TIA), and cerebral infarction without residual deficits
CPT/HCPCS: 36415; 80048; 85025; 85610

== ENCOUNTER 2023-09-21 19:07 | Emergency (ER) | payer MEDICARE, SELFPAY ==
[2023-09-21 19:07] VITALS: BP 130/57; PULSE 57; RESP 14; TEMP 36.8; O2SAT 94; BMI 29.6
--- NOTE | 2023-09-21 19:14 | ECG_ITS ---
APPROVED REPORT Exam: Resting ECG HR:72 bpm ECG Measurements Heart Rate 72 AXES CA 201 P 25 QRSd 106 QRS -26 QT 367 T 40 QTc 392 Conclusion SINUS RHYTHM WITH OCCASIONAL SUPRAVENTRICULAR PREMATURE COMPLEXES INCOMPLETE RIGHT BUNDLE BRANCH BLOCK [90+ ms QRS DURATION, TERMINAL R IN V1/V2, 40+ ms S IN I/aVL/V4/V5/V6] Electronically signed by : MAT BENSON, 09/22/2023 05:42:57
--- NOTE | 2023-09-21 19:14 | CT_ITS ---
PROCEDURE INFORMATION: Exam: CT Head Without Contrast Exam date and time: 09/21/2023 7:55 PM Age: 82 years old Clinical indication: Stroke-like symptoms; Other: Facial assymetry; Additional info: Facial assymetry, patient aphasic at baseline TECHNIQUE: Imaging protocol: Computed tomography of the head without contrast. Radiation optimization: All CT scans at this facility use at least one of these dose optimization techniques: automated exposure control; mA and/or kV adjustment per patient size (includes targeted exams where dose is matched to clinical indication); or iterative reconstruction. Other technique: STROKE PROTOCOL was implemented. COMPARISON: CT HEAD/BRAIN WO CON 04/01/2021 5:59 PM FINDINGS: Brain: Intracranial vascular calcification. Decreased attenuation of the supratentorial white matter is likely secondary to chronic microvascular ischemia. No acute intracranial hemorrhage. Cerebral ventricles: Ventricular and subarachnoid spaces are age appropriate. Paranasal sinuses: Visualized sinuses are unremarkable. No fluid levels. Mastoid air cells: Opacification of the right mastoid air cells and right middle ear cavity. Bones/joints: Unremarkable. No acute fracture. Soft tissues: Unremarkable. IMPRESSION: No acute intracranial abnormality. ASSESSMENT: ASPECTS ([facility] Stroke Program Early CT Score) is 10.
--- NOTE | 2023-09-21 19:14 | CT_ITS ---
PROCEDURE INFORMATION: Exam: CTA Neck With Contrast Exam date and time: 09/21/2023 7:58 PM Age: 82 years old Clinical indication: Stroke-like symptoms; Altered mental status/memory loss; Additional info: Facial assymetry, patient aphasic at baseline TECHNIQUE: Imaging protocol: Computed tomographic angiography of the neck with contrast. Exam focused on the cervical segments of the vasculature. 3D rendering (Not supervised by radiologist): MIP and/or 3D reconstructed images were created by the technologist. Radiation optimization: All CT scans at this facility use at least one of these dose optimization techniques: automated exposure control; mA and/or kV adjustment per patient size (includes targeted exams where dose is matched to clinical indication); or iterative reconstruction. Contrast material: ISOVUE; Contrast volume: 100 ml; Contrast route: INTRAVENOUS (IV); COMPARISON: CT ANGIO HEAD 09/21/2023 7:58 PM FINDINGS: Limitations: Patient motion. Right common carotid artery: No stenosis. No dissection or occlusion. Right internal carotid artery: Calcification and atheromatous plaquing of the proximal right internal carotid artery. Stenosis measures 60%. Right external carotid artery: Moderate to severe stenosis at the origin of the right external carotid artery. Left common carotid artery: Calcification and atheromatous plaquing of the left common carotid artery greater distally. Mild stenosis measures less than 50%. Left internal carotid artery: Calcification of the proximal left ICA. Stenosis measures less than 50%. Left external carotid artery: Hmqz-aw-xwthlfdn stenosis of the proximal left external carotid artery. Right vertebral artery: Right vertebral artery is dominant. Moderate to severe stenosis at the origin of the right vertebral artery. Left vertebral artery: There is occlusion of the left vertebral artery with V2 reconstitution. Right subclavian artery: Moderate stenosis involving the right subclavian artery. Left subclavian artery: Moderate stenosis involving the left subclavian artery. Aorta: Aortic calcification. Atheromatous irregularity involving the thoracic aorta. Soft tissues: Normal. No significant soft tissue swelling. Bones/joints: There are degenerative changes involving the spine. IMPRESSION: 1. 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 2. Moderate to severe stenosis at the origin of the right vertebral artery. 3. 60% stenosis of the proximal right ICA. 4. Additional findings as above. REFERENCES: NASCET CRITERIA. The degree of stenosis in the cervical segment of the internal carotid artery is based on NASCET criteria. Normal is no stenosis. Mild is less than 50% stenosis. Moderate is 50-69% stenosis. Severe is 70% to 99% stenosis. Total occlusion is no detectable patent lumen.
--- NOTE | 2023-09-21 19:14 | CT_ITS ---
PROCEDURE INFORMATION: Exam: CTA Head With Contrast, Arteriography Exam date and time: 09/21/2023 7:58 PM Age: 82 years old Clinical indication: Stroke-like symptoms; Altered mental status/memory loss; Additional info: Facial assymetry, patient aphasic at baseline TECHNIQUE: Imaging protocol: Computed tomographic angiography of the head with contrast. Exam focused on the arteries. 3D rendering (Not supervised by radiologist): MIP and/or 3D reconstructed images were created by the technologist. Radiation optimization: All CT scans at this facility use at least one of these dose optimization techniques: automated exposure control; mA and/or kV adjustment per patient size (includes targeted exams where dose is matched to clinical indication); or iterative reconstruction. Contrast material: ISOVUE; Contrast volume: 100 ml; Contrast route: INTRAVENOUS (IV); COMPARISON: CT HEAD/BRAIN WO CON 09/21/2023 7:55 PM FINDINGS: ANTERIOR CIRCULATION: Right internal carotid artery: Mild stenosis involving the right carotid siphon. Right middle cerebral artery: No occlusion or significant stenosis. No aneurysm. Right anterior cerebral artery: No occlusion or significant stenosis. No aneurysm. Left internal carotid artery: [id number]-[id number] stenosis involving the left carotid siphon. Left middle cerebral artery: Bryt-yn-hlxuhkdt left MCA M1 stenosis. Left anterior cerebral artery: No occlusion or significant stenosis. No aneurysm. POSTERIOR CIRCULATION: Right vertebral artery: Right vertebral artery is dominant. Left vertebral artery: Diminutive left vertebral artery. Basilar artery: Congenitally diminutive basilar artery. Right posterior cerebral artery: origin of the right posterior cerebral artery. Cyuq-hh-[id number] proximal stenosis. Left posterior cerebral artery: origin of the left posterior cerebral artery. IMPRESSION: 1. Hzly-dt-zoytdyeo stenosis involving the left carotid siphon and mild stenosis involving the right carotid siphon. 2. Xvcj-pk-[id number] left MCA M1 stenosis. 3. origin of the right FIELD SPEC with ywto-xg-zfwrlftz proximal stenosis. 4. No large vessel occlusion.
--- NOTE | 2023-09-21 19:17 | XR_ITS ---
PROCEDURE INFORMATION: Exam: XR Chest Exam date and time: 09/21/2023 7:41 PM Age: 82 years old Clinical indication: Dyspnea TECHNIQUE: Imaging protocol: Radiologic exam of the chest. Views: 1 view. COMPARISON: CR XR CHEST 2V 04/26/2022 11:41 AM FINDINGS: Lungs: Left basilar atelectasis and/or infiltrate. Pleural spaces: Small left-sided pleural effusion not excluded. Heart/Mediastinum: Cardiomegaly. Vasculature: Aortic calcification. Diaphragm: Elevation of the right hemidiaphragm. Bones/joints: Previous median sternotomy. Osteopenia. Degenerative change involving the shoulders and spine. IMPRESSION: 1. Left basilar atelectasis and/or infiltrate. 2. Small left-sided pleural effusion not excluded.
--- NOTE | 2023-09-21 19:19 | ED_ITS ---
Discharge Plan Disposition Patient Disposition: Home, Self-Care Prescriptions Prescriptions: New amoxicillin-pot clavulanate 875-125 mg tablet 1 tab PO BID 10 Days Qty: 20 0RF No Action multivitamin with minerals [[facility] Multiple/Chelated Mineral] Tablet 1 tab PO DAILY glycopyrrolate 1.7 mg tablet,disintegrating 1.7 mg PO BID Qty: 60 0RF Rx Instructions: administer on an empty stomach, at least 1 hour before or 2 hours after food/meal(s) ipratropium-albuterol 0.5 mg-3 mg(2.5 mg base)/3 mL solution for nebulization 3 ml inhalation Q6H PRN (Reason: shortness of breath) Qty: 180 5RF clopidogrel 75 mg tablet PO Patient Comments: TAKE 1 TABLET BY MOUTH ONCE DAILY tamsulosin 0.4 mg capsule 0.8 mg PO DAILY Qty: 180 3RF Rx Instructions: Take 2 capsules by mouth once daily amlodipine 5 mg tablet See Rx Instructions .ROUTE .COMPLEX Qty: 90 3RF Dose Instruction: Take 1 tablet by mouth once daily Rx Instructions: Take 1 tablet by mouth once daily finasteride 5 mg tablet See Rx Instructions .ROUTE .COMPLEX Qty: 90 0RF Dose Instruction: TAKE 1 TABLET BY MOUTH ONCE DAILY AT BEDTIME Rx Instructions: TAKE 1 TABLET BY MOUTH ONCE DAILY AT BEDTIME hyoscyamine sulfate 0.125 mg tablet, sublingual See Rx Instructions .ROUTE .COMPLEX Qty: 120 0RF Dose Instruction: DISSOLVE 1 TABLET IN MOUTH 4 TIMES DAILY Rx Instructions: DISSOLVE 1 TABLET IN MOUTH 4 TIMES DAILY pantoprazole 40 mg tablet,delayed release (DR/EC) See Rx Instructions .ROUTE .COMPLEX Qty: 90 0RF Dose Instruction: Take 1 tablet by mouth once daily Rx Instructions: Take 1 tablet by mouth once daily ascorbic acid (vitamin C) 500 MG tablet,chewable 500 mg PO DAILY Rx Instructions: CHEW AND SWALLOW 1 TABLET ONCE DAILY cholecalciferol (vitamin D3) 1,000 UNIT capsule 25 mcg PO DAILY zinc sulfate 220 MG capsule 50 mg PO DAILY lidocaine 0.05 MG/MG adhesive patch,medicated 1 patch TP DAILY Qty: 30 2RF Referrals Follow up/Referrals: Delfina Ladd PA [Primary Care Provider] - See instructions Activity Restrictions/Add. Instructions Additional Instructions/Restrictions: Your neurologic exam today was at your baseline on my evaluation. It is possible that you had a transient ischemic attack as discussed. Please continue to take your aspirin and Plavix and your home medications. You are offered admission but opted for outpatient follow-up. 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 As stated above I recommend you follow-up with your vascular surgeon for extracranial discussions and with a neurosurgeon for intracranial discussions. Please return with any neurologic symptoms that are not resolving. Additionally for the cellulitis of your great toe antibiotics have been prescribed please follow-up with primary care doctor to ensure resolution. Clinical Impressions Clinical Impression: Concern about stroke without diagnosis, Expressive aphasia, Encounter for medical screening examination, Bilateral carotid artery stenosis, Stenosis of right vertebral artery, Asymptomatic stenosis of posterior cerebral artery Discharge ED Provider: Kulwant Valenzuela General Adult HPI General Chief complaint: Weakness Stated complaint: CVA Time Seen by Provider: 09/21/23 19:10 History of Present Illness HPI narrative: Patient is an 82-year-old male brought in for concern for possible stroke by his . 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 She states that she noticed that his balance was little bit off and that he had some facial asymmetry earlier this morning last known normal about 11 AM. History is significant limited from the patient himself but no other symptoms including fevers chills cough etc. Related Data Home Medications Medication Instructions Recorded Confirmed multivitamin with minerals ([facility] 1 tab PO DAILY Supplement 05/04/21 08/16/23 Multiple/Chelated Mineral tablet) ascorbic acid (vitamin C) 500 mg 500 mg PO DAILY Supplement 02/25/22 08/16/23 chewable tablet cholecalciferol (vitamin D3) 25 25 mcg PO DAILY Supplement 02/25/22 08/16/23 mcg (1,000 unit) capsule zinc sulfate 50 mg zinc (220 mg) 50 mg PO DAILY Supplement 02/25/22 08/16/23 capsule clopidogrel 75 mg tablet mg PO 08/16/23 08/16/23 Previous Rx's Medication Instructions Recorded lidocaine 5 % topical patch 1 patch topical DAILY #30 patches 02/25/22 tamsulosin 0.4 mg capsule 0.8 mg (2 x 0.4 mg) PO DAILY 07/07/22 prostate #180 caps glycopyrrolate 1.7 mg 1.7 mg PO BID #60 tabs 10/07/22 disintegrating tablet ipratropium 0.5 mg-albuterol 3 mg 3 ml inhalation Q6H PRN shortness 10/07/22 (2.5 mg base)/3 mL nebulization of breath #180 mL soln amlodipine 5 mg tablet See Rx Instructions .Route 11/08/22 .COMPLEX #90 tabs finasteride 5 mg tablet See Rx Instructions .Route 06/24/23 .COMPLEX #90 tabs hyoscyamine sulfate 0.125 mg See Rx Instructions .Route 08/01/23 sublingual tablet .COMPLEX #120 tabs pantoprazole 40 mg tablet,delayed See Rx Instructions .Route 08/23/23 release .COMPLEX #90 tabs amoxicillin 875 mg-potassium 1 tab PO BID 10 days #20 tabs 09/21/23 clavulanate 125 mg tablet Allergies Allergy/AdvReac Type Severity Reaction Status Date / Time No Known Allergies Allergy Verified 05/17/23 13:55 [facility] Disclaimer: The information contained in this section may have been updated after the patient was seen, as this information can be updated by other users. Medical History CAD (coronary artery disease) Cerebrovascular accident (CVA) Discoloration of skin of foot Surgical History History of abdominal aortic aneurysm (AAA) repair Hx of CABG Social History Smoking Status: Never smoker alcohol intake: never substance use type: denies use current occupational status: other Travel in the last 8 weeks: None household members: spouse housing: house caffeine: Yes ROS Obtained: Yes All systems reviewed & no additional complaints except as documented Physical Exam General General appearance: alert and in no apparent distress Respiratory Respiratory exam: Present normal lung sounds bilaterally; Absent respiratory distress Cardiovascular Cardiovascular exam: Present regular rate and normal rhythm Neurological Exam Neurological exam: Present alert, CN II-XII intact and other (Patient following some commands but not all); Absent oriented X3 (Unable to identify because patient is aphasic from expressive standpoint) or motor sensory deficit Medical Decision Making Jonathan Inquiry Pt receiving controlled substance: No Vital Signs: 09/21/23 19:07 09/21/23 19:30 Temperature 98.2 F Temperature Source Oral Pulse Rate 64 Pulse Rate [Left] 57 L Respiratory Rate 14 14 Blood Pressure 124/50 L Blood Pressure [Right Arm] 130/57 L Blood Pressure Mean [Right Arm] 81 Blood Pressure Source [Right Arm] Automatic Cuff Blood Pressure Position [Right Arm] Sitting 02 Sat by Pulse Oximetry 94 L 96 Oxygen Delivery Method Room Air Lab Data Lab results reviewed: Yes I reviewed the patient's lab results. Lab Results 09/21/23 19:12: WBC 6.0, RBC 4.25 L, Hgb 13.1 L, Hct 40.8 L, MCV 96.1 H, MCH 30.9, MCHC 32.1, RDW 15.0, Plt Count 194, MPV 8.6, Neut % (Auto) 61.2, Lymph % (Auto) 25.9, [place] % (Auto) 9.3, Eos % (Auto) 2.9, Baso % (Auto) 0.7, Neut # (Auto) 3.7, Lymph # (Auto) 1.5, [place] # (Auto) 0.6, Eos # (Auto) 0.2, Baso # (Auto) 0.0, PT 11.2, INR 1.04, APTT 30.4, Sodium 139, Potassium 4.3, Chloride 105, Carbon Dioxide 26, Anion Gap 12.3, BUN 22 H, Creatinine 1.50 H, Estimated Creat Clear 43, Estimated GFR 45 L, Est GFR ( Amer) 54 L, Glucose 105 H, Calcium 9.3, Total Bilirubin 0.8, AST 26, ALT 18, Alkaline Phosphatase 95, Troponin I < 0.01, Total Protein 7.3, Albumin 4.1, Globulin 3.2, Albumin/Globulin Ratio 1.3 09/21/23 19:12 09/21/23 19:12 Orders (Tests/Meds): ED MEDICATIONS Discontinued Medications Generic Name Dose Route Start Last Admin Trade Name Freq PRN Reason Stop Dose Admin Lactated Ringer's 1,000 mls @ 999 mls/hr 09/21/23 19:15 09/21/23 19:29 Lactated Ringer's 1000 Ml Bag IV 09/21/23 20:15 999 mls/hr .Q1H1M MASHA Administration Iopamidol 100 ml 09/21/23 19:58 09/21/23 20:00 Iopamidol-370 (76%);100ml Bottle IV 09/21/23 19:59 100 ml ONCE ONE Administration Sodium Chloride 10 ml 09/21/23 19:58 09/21/23 20:00 Sodium Chloride 0.9% 10ml Syr (Rad Only) IV 09/21/23 19:59 10 ml ONCE ONE Administration Sodium Chloride 50 ml 09/21/23 19:58 09/21/23 20:00 0.9 % Sodium Chloride 50 Ml Vial IV 09/21/23 19:59 50 ml ONCE ONE Administration ORDERS Category Date Time Status CT angio head Stat Cat Scan 09/21/23 19:[address] angio neck Stat Cat Scan 09/21/23 19:[address] head/brain wo con Stat Cat Scan 09/21/23 19:14 Completed CXR --portable [XR chest portable] Stat Exams 09/21/23 19:17 Completed CBC w/Auto Diff [Complete Blood Count Auto Diff] Stat Lab 09/21/23 19:12 Completed CMP [Comprehensive Metabolic Panel] Stat Lab 09/21/23 19:12 Completed PT/PTT Stat Lab 09/21/23 19:12 Completed Trop I [Troponin I] Stat Lab 09/21/23 19:12 Completed Troponin I Q3H Lab 09/21/23 22:30 Ordered Troponin I Q3H Lab 09/22/23 01:30 Ordered UA [Urinalysis and Microscopic] Stat Lab 09/21/23 19:20 Ordered Medical Decision Narrative: Patient with above history concerned about facial asymmetry and another stroke will get a CT of the head without contrast and CT angio of the head and neck. I do not appreciate any focal neurologic deficits patient is not following all commands specifically with facial motor commands but he is able to give me a thumbs up with both arms move his arms and legs with commands specifically following those commands but states that to some extent he is not at his baseline. This is very difficult history and physical given the patient's limitations from an expression standpoint. Therefore we will err the side of caution and get imaging to make sure is not any acute abnormality. Also could be an amnestic event where he is having some manifestation of previous strokelike symptoms such as in the setting of urinary tract infection he is unable to tell me whether or not he is having symptoms at the moment 2. Same will be treated with a pneumonia we will get a chest x-ray as well. Reassessment 853 patient serial neurologic exams remain normal at the bedside also agrees that he is at his baseline. Unclear as to whether or not this was a TIA certainly possible. CT of the head Noncon and CTA of the head and neck were performed which I personally interpreted which did not show any acute intracranial hemorrhage. Regarding radiology read multiple stenotic vessels were found on the CTAs including bilateral carotid stenosis at the siphons, mid to moderate left MCA M1 stenosis, right [employer] stenosis, left vertebral artery occlusion at B2 with reconstitution distally, moderate to severe stenosis of right vertebral artery at its origin, 60% stenosis of right internal carotid. Given the numerous areas of stenosis patient certainly could have had a focal area of ischemia that caused the symptoms earlier today even though I do not appreciate them. I discussed with him the possibility of admission for further evaluation and management of a transient ischemic attack but the patient adamantly wanted to go home. He has close follow-up with a vascular surgeon for surgery on his lower extremities as he is a known vasculopath and there and has been advised to talk to them about his extracranial manifestations of stenotic vessels. He will continue his dual antiplatelet regimen that he is on including aspirin and Plavix. His and son are at the bedside and they also agree with going home and understand the risks that he may have a large event but there are also significant risks associate with any type of surgical intervention including vascular surgery and neurosurgery for intracranial pathology as stated above. I advised that he follow-up closely with a neurosurgeon for his intracranial pathology as well but he and his family state that they do not want any type of endovascular surgical intervention for anything intracranial. Therefore despite numerous tonic vessels in his brain and a possible TIA we with shared decision making decided for him to follow-up outpatient. They will return with any worsening symptoms he was discharged at his neurologic baseline. Lastly he complained of toe pain that his found upon changing his socks when he had some erythema on the distal aspect of his middle toe on the right foot. He is focally tender there we will treat him with Augmentin and there is a small area light-colored tissue surrounding this but appears to be somewhat ischemic versus nonacute area or focal fluctuant area of purulence. I do not believe that this is a paronychia or small abscess. Prescription was sent to his pharmacy. Patient was discharged in stable condition with return precautions emphasized. Critical Care Critical Care Time Critical Care Time: Yes Attestation: On 09/21/23, the high probability of a clinically significant, sudden or life threatening deterioration of the following system(s) required my full and direct attention, intervention and personal management. The time I documented below is in addition to time spent performing reported procedures but includes the following listed in this critical care notation. Total Time Total Critical Care Time: 35
[2023-09-21 19:24] LABS: Basophils % 0.7 % (0.1-2.0); Eosinophils # 0.2 K/mm3 (0.0-0.4); Eosinophils % 2.9 % (0.1-12.0); Hematocrit 40.8 % (42.0-52.0); Hemoglobin 13.1 g/dL (14.1-18.0); Lymphocytes # 1.5 K/mm3 (0.7-4.5); Lymphocytes % 25.9 % (10-50); Mean Corpuscular HGB Conc 32.1 g/dL (31.8-35.4); Mean Corpuscular Hemoglobin 30.9 pg (27.0-31.2); Mean Corpuscular Volume 96.1 fl (80-94); Mean Platelet Volume 8.6 fl (7.4-10.4); Monocytes # 0.6 K/mm3 (0.1-1.0); Monocytes % 9.3 % (1.7-9.3); Neutrophils # 3.7 K/mm3 (1.8-7.8); Neutrophils % 61.2 % (37.0-80.0); Platelet Count 194 K/mm3 (142-424); Red Blood Count 4.25 M/mm3 (4.60-6.20)
[2023-09-21] MEDS: LACTATED RINGERS 1000ML 1,000 ML 999 ML IV (19:29)
[2023-09-21 19:30] VITALS: BP 124/50; PULSE 64; RESP 14; O2SAT 96
[2023-09-21 19:32] LABS: Alanine Aminotransferase 18 U/L (12-78); Albumin Level 4.1 g/dl (3.5-5.0); Albumin/Globulin Ratio 1.3 (1.1-1.8); Alkaline Phosphatase 95 U/L (38-126); Anion Gap 12.3 mEq/L (5-15); Aspartate Amino Transferase 26 U/L (17-59); Bilirubin,Total 0.8 mg/dl (0.2-1.3); Blood Urea Nitrogen 22 mg/dl (9-20); Calcium 9.3 mg/dl (8.4-10.2); Carbon Dioxide 26 mmol/L (22.0-30.0); Chloride 105 mmol/L (98-107); Creatinine Clearance Estimated 43 mL/min (50-200); Estimated Glomerular Filt Rate 45 ml/min (>60); GFR (African American) 54 ML/MIN (>60); Globulin 3.2 g/dL (1.3-3.2); Glucose 105 mg/dl (74-100); Potassium 4.3 mmoL/L (3.5-5.1); Sodium 139 mmol/L (136-145); Total Protein,Serum 7.3 g/dl (6.3-8.2)
[2023-09-21 19:34] LABS: Activated Partial Thrombo Time 30.4 seconds (22.8-30.6); INR 1.04 (0.9-1.1); Prothrombin Time 11.2 seconds (10.1-12.5)
[2023-09-21 19:50] LABS: Troponin I < 0.01 ng/ml (0.00-0.034)
[2023-09-21] MEDS: IOPAMIDOL-370 (76%);100ML BOTTLE 100 ML IV (20:00)
[2023-09-21] MEDS: 0.9 % SODIUM CHLORIDE 50 ML VIAL IV (20:00)
[2023-09-21] MEDS: SODIUM CHLORIDE 0.9% 10ML SYR (RAD ONLY) 10 ML IV (20:00)
[2023-09-21 21:06] VITALS: BP 159/70; PULSE 74; RESP 21; TEMP 36.8; O2SAT 95
[2023-09-21] MEDS: ACETAMINOPHEN 500MG TAB 1000 MG PO (21:19)
== END 2023-09-21 21:31 | disposition home or self-care (01) ==
PROVIDERS: Emergency Provider Student in an Organized Health Care Education/Training Program; PCP Physician Assistant
DX: R29.810 Facial weakness (principal); I65.23 Occlusion and stenosis of bilateral carotid arteries; I65.01 Occlusion and stenosis of right vertebral artery; I66.21 Occlusion and stenosis of right posterior cerebral artery; I69.320 Aphasia following cerebral infarction; I25.10 Atherosclerotic heart disease of native coronary artery without angina pectoris
CPT/HCPCS: 70450; 70496; 70498; 71045; 80053; 84484; 85025; 85610; 85730; 93005; 96360; 99291; Q9967